=== PATIENT | male | born 1975 | race Caucasian/White ===

== ENCOUNTER 2019-05-18 01:50 | Emergency (ER) | payer OTHER ==
[~2019-05-18] VITALS: Ht 170.2 cm; Wt 108.9 kg
[2019-05-18 01:55] VITALS: BP 148/94
--- NOTE | 2019-05-18 01:55 | NUR ---
PT ANABELL BLS. TAKEN TO BED 7
[2019-05-18] MEDS ORDERED: IBUPROFEN 800 MG TAB PO ONE (02:25)
[2019-05-18 02:30] VITALS: BP 148/94
--- NOTE | 2019-05-18 02:30 | NUR ---
44 Y/O M BIBA WITH C/O R KNEE AND ANKLE PAIN S/P SLIP AND FALL AT WORK X1 HOUR AGO. PER PT "I WAS WATERING THE PLANTS WHEN I SLIPPED AND FELL. I FELT MY ANKLE TWIST ADN MY KNEE CRACK." 10/10 PAIN, ACHING AND THROBBING. +CMS. NO ECCHYMOSIS OR DEFORMITY NOTED. ERMD AWARE OF PT STATUS. WILL CONTINUE TO MONITOR.
--- NOTE | 2019-05-18 03:31 | NUR ---
POSTERIOR LONG LEG SPLINT PLACED ON PT R LEG, WRAPPED WITH JONATHAN WRAP. +CSM
--- NOTE | 2019-05-18 03:32 | NUR ---
PT GIVEN INSTRUCTION ON PROPER USE OF CRUTCHES. CRUTCHES FITTED TO PT HEIGHT AND ARM LENGTH. PT GIVEN INSTRUCTION ON USE OF CRUTCHES, FROM SITTING TO STANDING AND VICE VERSA, ASCENDING/DESCENDING STAIRS, AND WALKING. PT DEMONSTRATED WALKING WITH CRUTCHES FOR APPROXIMATELY 40 FEET. PT STATED HE FELT COMFORTABLE WITH USE.
--- NOTE | 2019-05-18 03:50 | NUR ---
Patient discharged with v/s stable. Written and verbal after care instructions given and explained. Patient alert, oriented and verbalized understanding of instructions. Ambulatory with steady gait utilizing cruthces. All questions addressed prior to discharge. ID band removed. Patient advised to follow up with PMD. Rx of Motrin and norco given. Patient educated on indication of medication including possible reaction and side effects. Opportunity to ask questions provided and answered.
== END 2019-05-18 03:50 | disposition home or self-care (01) ==
LOC: MED 01:50
DX: S82.144A Nondisplaced bicondylar fracture of right tibia, initial encounter for closed fracture (principal); M25.571 Pain in right ankle and joints of right foot; W01.0XXA Fall on same level from slipping, tripping and stumbling without subsequent striking against object, initial encounter; Y93.89 Activity, other specified; Y92.89 Other specified places as the place of occurrence of the external cause; Y99.0 Civilian activity done for income or pay
CPT/HCPCS: 29505; 73562; 73610; 99283; Q0092